=== PATIENT | female | born 1970 | race Asian ===

== ENCOUNTER → 2018-02-20 09:35 | Outpatient (CLI) | payer OTHER, SELFPAY ==
--- NOTE | 2018-02-20 | DI.US.S_ITS ---
ULTRASOUND OF LEFT BREAST: 02/20/2018 CLINICAL: Left axillary tail/axillary pain. Asymmetry seen on diagnostic mammography along the 12 o'clock radian. Comparison is made to exam dated: 02/20/2018 [facility]. Real-time and Doppler ultrasound of the left breast were performed. Monahan scale images of the real-time examination were reviewed. There is a benign 0.9 cm x 0.8 cm x 0.5 cm oval cyst with a smooth internal wall in the left breast at 12 o'clock in the retroareolar region. This oval cyst is anechoic with posterior acoustic enhancement. Color flow imaging demonstrates that there is no vascularity present. Targeted ultrasound was performed of the left axillary tail/axilla in the region of the patient's reported focal pain. No underlying breast mass or abnormality is identified. IMPRESSION: BENIGN 1) Negative ultrasound evaluation of the area of the patient's reported focal left axillary tail/axilla pain. Recommend clinical follow-up for further evaluation and management of the patient's reported symptoms. 2) The 0.9 cm x 0.8 cm x 0.5 cm oval cyst in the left breast is consistent with a simple cyst and is benign. 3) There is no sonographic evidence of malignancy in the imaged left breast. Return to annual screening mammography is recommended. This exam was interpreted at Station ID: [id number]. Electronically Signed By: Sancho Cabrera M.D. ecl/:02/20/2018 12:25:32 letter sent: Clinical Evaluation Ultrasound BI-RADS: 2 Benign
--- NOTE | 2018-02-20 | DI.US.S_ITS ---
ULTRASOUND OF RIGHT BREAST: 02/20/2018 CLINICAL: Palpable right breast lump. Comparison is made to exam dated: 02/20/2018 mammogram - [facility]. Real-time and Doppler ultrasound of the right breast were performed. Monahan scale images of the real-time examination were reviewed. There is a 1.3 cm x 1.1 cm x 1.1 cm irregular mass with an indistinct margin in the right breast at 9 o'clock 5 cm from the nipple. This irregular mass is hypoechoic. This correlates as palpated and with mammography findings. Color flow imaging demonstrates that there is no vascularity present. Targeted right axillary ultrasound demonstrates no lymphadenopathy. IMPRESSION: SUSPICIOUS OF MALIGNANCY - FOLLOW-UP RECOMMENDED 1) The 1.3 cm x 1.1 cm x 1.1 cm irregular mass in the right breast is at a low suspicion for malignancy. An ultrasound guided biopsy is recommended. These results and recommendations were discussed with the patient in person at the time of the exam by [facility] radiologist Dr. Edvin Colmenares. 2) Negative right axillary ultrasound. This exam was interpreted at Station ID: [id number]. Electronically Signed By: Sancho Cabrera M.D. ecl/:02/20/2018 12:35:12 letter sent: Biopsy Required Ultrasound BI-RADS: 4a Suspicious abnormality - low suspicion for malignancy
--- NOTE | 2018-02-20 | DI.MG.S_ITS ---
BILATERAL DIGITAL DIAGNOSTIC MAMMOGRAM 3D/2D: 02/20/2018 CLINICAL: Baseline exam. Lump in the right breast. Left axillary tenderness. No prior exams were available for comparison. The tissue of both breasts is heterogeneously dense. This may lower the sensitivity of mammography. There is a square marker overlying the upper outer left breast axillary tail/axilla at posterior depth at the site of the patient's focal left axillary/axillary tail pain. No underlying mass or abnormality is identified. There is a triangular marker overlying the upper outer right breast at anterior depth at the site of the patient's focal right palpable abnormality. There is an underlying approximately 1 cm indistinct focal asymmetry. There is a 1.0 cm oval indistinct focal asymmetry in the upper left breast along the 12 o'clock radian at retroareolar depth. There are diffuse punctate calcifications in the left breast, which appear benign. No other significant masses, calcifications, or other findings are seen in either breast. IMPRESSION: INCOMPLETE: NEEDS ADDITIONAL IMAGING EVALUATION 1) 1 cm indistinct focal asymmetry in the upper outer right breast at site of patient's palpable abnormality. A targeted ultrasound is recommended. 2) Negative mammographic evaluation of the left breast axillary tail/axillary region at site of patient's focal pain. A targeted ultrasound is recommended. 3) 1.0 cm oval indistinct focal asymmetry in the upper left breast along the 12 o'clock radian at retroareolar depth. A targeted ultrasound is recommended. This exam was interpreted at Station ID: [id number]. NOTE: For mammograms, a report in lay terms will be sent to the patient. Approximately 15% of breast malignancies will not be visualized mammographically. In the management of a palpable breast mass, a negative mammogram must not discourage biopsy of a clinically suspicious lesion. Electronically Signed By: Sancho Cabrera M.D. ecl/:02/20/2018 12:21:00 letter sent: Additional Imaging Needed ACR BI-RADS Category 0: Incomplete [id number]
== END ==
PROVIDERS: Visit Provider Physician Assistant
DX: R92.8 Other abnormal and inconclusive findings on diagnostic imaging of breast (principal); N63.10 Unspecified lump in the right breast, unspecified quadrant; N60.02 Solitary cyst of left breast
CPT/HCPCS: 76642; 77066; G0279

== ENCOUNTER → 2018-03-19 12:23 | Outpatient (CLI) | payer OTHER, SELFPAY ==
--- NOTE | 2018-03-19 | DI.US.S_ITS ---
ULTRASOUND OF RIGHT BREAST: 03/19/2018 CLINICAL: Patient scheduled for right breast biopsy; mass is smaller in today's exam. Biopsy cancelled. Patient to return in 4-6 weeks for ultrasound follow-up. Comparison is made to exams dated: 02/20/2018 ultrasound and 02/20/2018 mammogram [facility]. Color flow and real-time ultrasound of the right breast were performed on the areas of interest. Monahan scale images of the real-time examination were reviewed. Previously there was a 1.7 cm x 1.6 cm x 1.5 cm irregular mass with an indistinct margin in the right breast at 9 o'clock 5 cm from the nipple. This abnormality is decreased in size (0.7 x 0.6 x 0.5 cm) and less prominent . The patient also states it feels smaller and softer on palpation since the prior study. Color flow imaging demonstrates that there is no vascularity present. IMPRESSION: PROBABLY BENIGN - FOLLOW-UP RECOMMENDED Decreasing irregular mass in the right breast is probably benign. A follow-up in 6 weeks is recommended. Findings and recommendations were discussed in detail with the patient at the time of the examination and all questions were answered. This exam was interpreted at Station ID: [id number]. Electronically Signed By: Tacho rincon/:03/19/2018 16:41:28 letter sent: Followup Recommended Ultrasound BI-RADS: 3 Probably benign
== END ==
PROVIDERS: Visit Provider Physician Assistant
DX: N63.10 Unspecified lump in the right breast, unspecified quadrant (principal)
CPT/HCPCS: 76642

== ENCOUNTER → 2018-05-07 13:09 | Outpatient (CLI) | payer OTHER, SELFPAY ==
--- NOTE | 2018-05-07 | DI.US.S_ITS ---
LIMITED ULTRASOUND OF RIGHT BREAST: 05/07/2018 CLINICAL: Short term f/u of rt brst mass. Pt was scheduled for biopsy of mass but mass measured smaller at time of biopsy; biopsy cancelled. Comparison is made to exams dated: 03/19/2018 ultrasound[facility]2018 [facility] and Doppler ultrasound of the right breast 9 o'clock region were performed. Monahan scale images of the real-time examination were reviewed. There is a 0.6 x 0.6 x 0.4 cm irregular mass with an indistinct margin in the right breast at 9 o'clock 5 cm from the nipple. This irregular mass is hypoechoic. This mass previously measured 1.3 cm x 1.1 cm x 1.1 cm on 02/20/2018 and 0.8 cm x 0.6 cm x 0.5 cm on 03/19/2018. Color flow imaging demonstrates that there is no vascularity present. The mass appears to demonstrate increased through transmission/posterior acoustic enhancement, and may have cystic components. IMPRESSION: PROBABLY BENIGN Previously identified irregular indistinct mass in the right breast at 9 o'clock position 5 cm from the nipple is stable to slightly decreased in size from prior exam of 03/19/2018, and is decreased iin size from prior exam of 02/20/2018. Decreasing size is suggestive of probable benignity; as such, a short term follow-up ultrasound in 6 weeks is recommended to demonstrate continued stability or decrease in size, with an ultrasound guided biopsy recommended should the mass demonstrate interval growth at that time. This exam was interpreted at Station ID: [id number]. Electronically Signed By: Sancho Cabrera M.D. ecl/:05/07/2018 14:00:08 letter sent: Followup Recommended Ultrasound BI-RADS: 3 Probably benign
== END ==
PROVIDERS: Visit Provider Physician Assistant
DX: N63.10 Unspecified lump in the right breast, unspecified quadrant (principal)
CPT/HCPCS: 76642

== ENCOUNTER → 2020-11-21 15:30 | Outpatient (CLI) | payer OTHER, SELFPAY ==
--- NOTE | 2020-11-21 | DI.MG.S_ITS ---
BILATERAL DIGITAL SCREENING MAMMOGRAM 3D/2D WITH CAD: 11/21/2020 CLINICAL: Routine screening. Comparison is made to exam dated: 02/20/2018 [facility]. The tissue of both breasts is heterogeneously dense. This may lower the sensitivity of mammography. Current study was also evaluated with a Computer Aided Detection (CAD) system. There are diffuse calcifications in both breasts. No significant masses, calcifications, or other findings are seen in either breast. There has been no significant interval change. IMPRESSION: BENIGN There is no mammographic evidence of malignancy. A 1 year screening mammogram is recommended. This exam was interpreted at Station ID: [id number]. NOTE: For mammograms, a report in lay terms will be sent to the patient. Approximately 15% of breast malignancies will not be visualized mammographically. In the management of a palpable breast mass, a negative mammogram must not discourage biopsy of a clinically suspicious lesion. Electronically Signed By: Brandon Florez M.D. aty/:11/21/2020 16:00:48 letter sent: Normal Exam ACR BI-RADS Category 2: Benign Finding(s) 3342F
== END ==
PROVIDERS: Referring Provider Physician Assistant Medical; Visit Provider Physician Assistant Medical
DX: Z12.31 Encounter for screening mammogram for malignant neoplasm of breast (principal)
CPT/HCPCS: 77063; 77067